=== PATIENT | female | born 1950 | race Caucasian/White ===

== ENCOUNTER 2018-04-28 06:44 | Observation (INO) | payer OTHER ==
[2018-04-28] MEDS ORDERED: CHLORHEXIDINE GLUC HIBICLENS 118 ML BTL TP ONE (07:00)
[2018-04-28] MEDS ORDERED: SURGIFLO MATRIX KIT WITH THROMBIN 8 ML TP ONE (07:00)
[2018-04-28] MEDS ORDERED: THROMBIN (BOVINE) 20,000 UNIT VIAL TP ONE (07:00)
[2018-04-28] MEDS ORDERED: GABAPENTIN 300 MG CAP PO ONE (07:01)
[2018-04-28] MEDS ORDERED: morphINE SR 15 MG TAB PO ONE (07:01)
[2018-04-28] MEDS ORDERED: ceFAZolin 2 GM/DEXTROSE 100 ML IV ONE (07:01)
[2018-04-28] MEDS ORDERED: BACITRACIN 50,000 UNITS/10 ML SYR IRR ONE (07:01)
[2018-04-28] MEDS ORDERED: LR 1,000 ML IV ONE (07:01)
[2018-04-28] MEDS ORDERED: ACETAMINOPHEN 500 MG TAB PO ONE (07:01)
--- NOTE | 2018-04-28 07:11 | PDHPUP ---
History & Physical Update H&P update statement: This history and physical update is based on an assessment of the patient which was completed after admission or registration (within 24 hours), but prior to the surgery/procedure. H&P update: H&P reviewed & patient examined, no change in patient's condition since H&P completed (Patient seen and all questions answered. Consents signed and sited marked.)
[2018-04-28 07:34] LABS: PLATELET COUNT 344 10^3/uL (150-400)
[2018-04-28] MEDS ORDERED: MIDAZOLAM 2 MG/2 ML VIAL IVP ONE (08:01)
--- NOTE | 2018-04-28 08:03 | PDANEPAE ---
ANE History of Present Illness C5-6 ACD and F ANE Past Medical History - Cardiovascular History Hx Hypertension: No Hx Arrhythmias: No Hx Chest Pain: No Hx Coronary Artery / Peripheral Vascular Disease: No Hx CHF / Valvular Disease: No Hx Palpitations: No - Pulmonary History Hx COPD: No Hx Asthma/Reactive Airway Disease: No Hx Recent Upper Respiratory Infection: No Hx Oxygen in Use at Home: No Hx Sleep Apnea: No Sleep Apnea Screening Result - Last Documented: Negative - Neurologic History Hx Cerebrovascular Accident: No Hx Seizures: No Hx Dementia: No - Endocrine History Hx Diabetes: No - Renal History Hx Renal Disorders: No - Liver History Hx Hepatic Disorders: No - Neurological & Psychiatric Hx Hx Neurological and Psychiatric Disorders: Yes Neurological / Psychiatric History Comment: ZINGERS DOWN ARMS - Cancer History Hx Cancer: No - Congenital Disorder History Hx Congenital Disorders: No - GI History Hx Gastrointestinal Disorders: Yes Gastrointestinal History Comment: DIVERTICULITIS - Other Health History Other Health History: BRUSITIS. BRUISES EASILY - Chronic Pain History Chronic Pain: No (RIGHT SHOULDER) - Surgical History Prior Surgeries: 2014 CATARCTS BILAT ANE Review of Systems Review of systems is: negative Review of Systems: - Exercise capacity METS (RN): 4 METS ANE Patient History - Allergies Allergies/Adverse Reactions: No Known Allergies Allergy (Verified 04/20/18 12:00) - Home Medications Home Medications: Cholestyramine (with Sugar) [Cholestyramine Packet] 4 gm PO DAILY 04/20/18 [ Last Taken 04/27/18 22:00] Herbals/Supplements -Info Only 1 ea PO DAILY 04/20/18 [Last Taken 1 Week Ago ~] - NPO status NPO Status: no food or drink >8 hours NPO Since - Liquids (Date): 04/27/18 NPO Since - Liquids (Time): 22:00 NPO Since - Solids (Date): 04/27/18 NPO Since - Solids (Time): 20:15 - Anes Hx Anes Hx: no prior problems - Smoking Hx Smoking Status: Former smoker Marijuana use: No - Alcohol Use Alcohol Use: Occasionally - Family Anes Hx Family Anes Hx: none Family Hx Anesthesia Complications: NONE ANE Labs/Vital Signs - Labs Result Diagrams: 04/28/18 07:30 - Vital Signs Blood Pressure: 141/79 Heart Rate: 82 Respiratory Rate: 16 O2 Sat (%): 95 Height: 162.56 cm Weight: 73.482 kg ANE Physical Exam - Airway Neck exam: decreased ROM Mallampati Score: Class 2 Mouth exam: normal dental/mouth exam, small mouth opening - Pulmonary Pulmonary: no respiratory distress, no rales or rhonchi - Cardiovascular Cardiovascular: regular rate and rhythym, no murmur, rub, or gallop - ASA Status ASA Status: II ANE Anesthesia Plan Anesthesia Plan: general endotracheal anesthesia
[2018-04-28] MEDS ORDERED: PROPOFOL 200 MG/20 ML VIAL ONE (08:07)
[2018-04-28] MEDS ORDERED: fentaNYL 250 MCG/5 ML INJ ONE (08:07)
[2018-04-28] MEDS ORDERED: PROPOFOL/EMULSION 500 MG/50 ML BOTTLE IV ONE (08:08)
[2018-04-28] MEDS ORDERED: ROCURONIUM 50 MG/5 ML VIAL ONE (08:08)
[2018-04-28] MEDS ORDERED: METOPROLOL TARTRATE 5 MG/5 ML INJ ONE (09:09)
[2018-04-28] MEDS ORDERED: HYDROCODONE/APAP 5/325 TAB PO PRN (09:35)
[2018-04-28] MEDS ORDERED: ONDANSETRON 4 MG/2 ML VIAL IVP PRN ×2 (09:35→10:01)
[2018-04-28] MEDS ORDERED: NALOXONE HCL 0.4 MG/ML INJ IVP PRN (09:35)
[2018-04-28] MEDS ORDERED: LABETALOL HCL 5 MG/ML 20 ML MDV IVP PRN (09:35)
[2018-04-28] MEDS ORDERED: DIAZEPAM 5 MG/ML 1 ML SYR IVP PRN (09:35)
[2018-04-28] MEDS ORDERED: oxyCODONE IR 5 MG TAB PO PRN (09:35)
[2018-04-28] MEDS ORDERED: DEXAMETHASONE 4 MG/ML VIAL ONE (09:37)
[2018-04-28] MEDS ORDERED: ONDANSETRON 4 MG/2 ML VIAL ONE (09:37)
[2018-04-28] MEDS ORDERED: MAGNESIUM HYDROXIDE 30 ML UDCUP PO PRN (10:01)
[2018-04-28] MEDS ORDERED: BISACODYL 10 MG SUPP PR PRN (10:01)
[2018-04-28] MEDS ORDERED: POLYETHYLENE GLYCOL 3350 17 GM PKT PO PRN (10:01)
[2018-04-28] MEDS ORDERED: LACTULOSE 20 GM/30 ML UDCUP PO PRN (10:01)
[2018-04-28] MEDS ORDERED: diphenhydrAMINE 25 MG CAP PO PRN (10:01)
[2018-04-28] MEDS ORDERED: ONDANSETRON DISINTEGRATING 4 MG TAB PO PRN (10:01)
[2018-04-28] MEDS ORDERED: fentaNYL 100 MCG/2 ML INJ ONE ×2 (10:08→10:52)
[2018-04-28] MEDS ORDERED: HYDROmorphONE/DILAUDID 2 MG/ML INJ ONE (10:08)
[2018-04-28] MEDS: fentaNYL 100 MCG/2 ML INJ IVP PRN ×2 (10:10→11:02)
--- NOTE | 2018-04-28 10:10 | POSTOPPROG ---
Post Op Note Date of Operation: 04/28/18 Surgeon: Manuel Le Piece Dyer: Maria Elena Villafana NP Anesthesiologist: Dr Castaneda Anesthesia: GET(General Endotracheal) Pre-op Diagnosis: Cervical radiculopathy Procedure: ACDF C5-6 Inf/Abcess present in the surg proc area at time of surgery?: No Depth: Deep Incisional (Fascial) EBL: Minimal Total fluids administered: see anesthesia Complications: none Date of Surgery: 04/28/18 Post Op Day: 0 Assessment/Plan: Assessment: 67 yr old F s/p ACDF C5-6 Plan: -Admit med surg for obs -Pain management -PT/OT/ST -Post op xrays ordered for later this afternoon -No collar needed -Please call neurosurgery with any questions/concerns Subjective: waking up in PACU Objective: Waking up in PACU No facial droop MAEx4 5/5 BUE BLE Incision/dressing CDI Appropriate Neuro Check Frequency Ordered: Yes
--- NOTE | 2018-04-28 10:14 | ASMTCMCOM ---
CM Note CM Note Notes: Patient is POD #0 ACDF C5/[address] Le. She is stable and recovering well. She lives with her in [place]. [facility] is already in touch w her for home PT services. Case Management available for any other d.c needs. Current CM Discharge plan: [facility] Date Signed: 04/28/2018 10:13 AM Electronically Signed By:Sue Sahu RN
[2018-04-28] MEDS: HYDROmorphONE/DILAUDID 2 MG/ML INJ IVP PRN ×3 (10:15→10:45)
[2018-04-28] MEDS ORDERED: NS 1,000 ML IV SCH (10:15)
[2018-04-28] MEDS ORDERED: METHOCARBAMOL 750 MG TAB ONE (10:37)
[2018-04-28] MEDS: METHOCARBAMOL 500 MG TAB PO PRN ×3 (10:54→20:48)
--- NOTE | 2018-04-28 10:58 | GOP ---
[f rep st] OPERATIVE REPORT DATE OF OPERATION: 04/28/2018 SURGEON: Manuel Le MD PACKAGE SEALER: Maria Elena Villafana NP. ANESTHESIA: General. PREOPERATIVE DIAGNOSIS: 1. C5-6 cervical spondylosis with upper extremity radiculopathy. 2. Treatment refractory to nonoperative intervention. POSTOPERATIVE DIAGNOSIS: 1. C5-6 cervical spondylosis with upper extremity radiculopathy. 2. Treatment refractory to nonoperative intervention. PROCEDURE PERFORMED: 1. Anterior arthrodesis with approach to C5 and C6. 2. C5/C6 diskectomy with bilateral foraminotomies, osteophytectomies, and interbody fusion using a 6 mm titanium coated polyetheretherketone cage filled with morselized autograft. 3. Anterior cervical fusion C5-C6 with a 17 mm Medtronic Zevo plate. 4. Use of intraoperative fluoroscopy, less than 1 hour physician time. 5. Use of neuromonitoring. 6. Use of operative microscope. FINDINGS: per imaging SPECIMENS: None. ESTIMATED BLOOD LOSS: 20 mL. COMPLICATIONS: None. INDICATIONS: The patient is a very pleasant 67-year-old woman who presented to the office with cervicalgia and radiculopathy. Imaging demonstrated cervical spondylosis at the C5-C6 level. After discussion of the risks, benefits, and alternatives, and after failing nonoperative intervention, we decided to proceed forth with surgery as described above. DESCRIPTION OF PROCEDURE: The patient was brought to the operating theater and underwent general endotracheal anesthesia without complications. She had Venodynes, GINA hose, and the appropriate lines placed by Anesthesia. Her head was maintained supine on the operating table in slight extension. Using lateral fluoroscopy and spinal needle, we picked our entry point to the C5 through C6 levels. This was marked as a transverse incision on the right side of her neck. This area was prepped and draped in the usual sterile surgical fashion. A time-out was completed per protocol, and the patient received antibiotics within 1 hour of incision. The incision was taken down with the scalpel blade. Used the monopolar, the incision was taken down the subcutaneous tissues to the level of the platysma. The platysma was over-mined in cranial and caudal directions. A Weitlaner was placed to maintain our exposure. We opened the fibers of the platysma cranially and caudally. Using both blunt and sharp dissection, we traveled in a plane medial to the carotid sheath and lateral to the esophagus and trachea until we reached the prevertebral fascia. We placed a bayonetted needle into the disk space of C5-C6 and confirmed our level using lateral fluoroscopy. We elevated the longus coli muscle from the anterior vertebral bodies of C5 and C6 , and a deep retractor was placed to maintain our exposure. The microscope was brought into the field to assist with microscopic dissection and to maintain illumination and magnification. We placed a [place] pin into the vertebral body of C5 and C6 and placed C5-C6 into mild distraction. We completed a C5-C6 diskectomy with bilateral foraminotomies and osteophytectomies. We prepared the cartilaginous endplates and measured the interbody space. We then placed a 6 mm titanium coated PEEK cage filled with morselized autograft into the C5-6 disk space. We removed the [place] pins and drilled down the anterior osteophytes and secured a 17 mm Medtronic Zevo plate onto the vertebral bodies of C5 and C6. AP and lateral x-rays demonstrated good placement of the hardware. The wound was irrigated copiously with bacitracin irrigation. We then closed the wound in multiple layers including Vicryl sutures for the deep layers and Dermabond for the skin. The patient's wounds were dressed sterilely. She was awakened, extubated and taken to recovery room in stable condition. There were no complications and no noted changes on neuromonitoring throughout the procedure. /[id number]/MODL MTDD
[2018-04-28] MEDS: ACETAMINOPHEN 500 MG TAB PO SCH ×2 (12:40→23:13)
[2018-04-28] MEDS: oxyCODONE IR 5 MG TAB PO PRN ×2 (12:41→20:49)
[2018-04-28] MEDS: ceFAZolin 2 GM/DEXTROSE 100 ML IV SCH ×2 (16:14→23:12)
--- NOTE | 2018-04-28 20:42 | POSTANESTH ---
Post Anesthetic Evaluation Cardiovascular Status: Normal, Stable Respiratory Status: Normal, Stable Level of Consciousness/Mental Status: Can Participate in Eval Pain Control: Adequate, Prn Tx Ordered Nausea/Vomiting Control: Adequate, Prn Tx Ordered Complications Possibly Related to Anesthesia: None Noted
[2018-04-28] MEDS: FAMOTIDINE 20 MG TAB PO SCH (20:48)
[2018-04-28] MEDS: SENNOSIDES/DOCUSATE SODIUM TAB PO SCH ×2 (20:48→20:53)
[2018-04-29] MEDS: oxyCODONE IR 5 MG TAB PO PRN ×2 (05:23→11:57)
[2018-04-29] MEDS: METHOCARBAMOL 500 MG TAB PO PRN ×2 (05:24→11:57)
[2018-04-29] MEDS: ACETAMINOPHEN 500 MG TAB PO SCH ×2 (05:24→12:26)
[2018-04-29 05:46] LABS: PLATELET COUNT 314 10^3/uL (150-400)
--- NOTE | 2018-04-29 07:20 | NEUSURGPN ---
Date of Surgery: 04/28/18 Post Op Day: 1 Assessment/Plan: Assessment: 67 yr old female that is s/p ACDF C5-6 POD #1 Plan: -s/p ACDF C5/6: doing well this am -no collar per Dr Le -eating/drinking and voiding fine -continue with med surg for obs -Pain management-CPM -PT/OT/ST pending this am -Post op xrays pending this am -warning signs given -Please call neurosurgery with any questions/concerns -plan for dc later this am if xrays ok and Pt clears therapies -d/w Dr Le Subjective: No new complaints. No segura/cp/sob/abd or gu complaints. No f/c/n/v/d. Objective: AAO x 3, PERRLA/EOMI No facial droop CN 2-12 grossly intact MAEx4 5/5 BUE BLE Incision/dressing CDI Neck soft and supple Neuro Check Frequency: per routine Urinary Catheter in Place: No - Physician Discussed Patient with : [facility] Physical Exam - Vitals, I&O, Labs I and O 04/28/18 04/29/18 04/30/18 05:59 05:59 05:59 Intake Total 3110 Output Total 2220 Balance 890 Weight 73.482 kg Intake: Oral (ml) 1300 IV Intake (ml) 800 IV Infused (ml) 1010 Ns 1,000 ml @ 75 mls/hr 900 IV CONT MARIA EUGENIA Rx#: [id number] ceFAZolin 2 GM/DEXTROSE 110 100 ml @ 200 mls/hr IV Q8H MARIA EUGENIA Rx#:[id number] Output: Urine (ml) 2200 Incontinence 900 Toilet 1300 Estimated Blood Loss (ml) 20 Other: Intake Quantity Yes Sufficient Number of Voids Incontinence 1 Toilet 1 Vital Signs Temp Pulse Resp BP Pulse Ox 36.9 C 62 16 135/60 H 92 04/29/18 03:31 04/29/18 03:31 04/29/18 03:31 04/29/18 03:31 04/29/18 03:31 Laboratory Results 04/29/18 05:08 04/29/18 05:08 ICD10 Worksheet Patient Problems: Problems Problem Status Onset Arthrodesis status Acute Cervical spinal stenosis Acute - ICD10 Problem Qualifiers (1) Cervical spinal stenosis (2) Arthrodesis status
[2018-04-29] MEDS: SENNOSIDES/DOCUSATE SODIUM TAB PO SCH (08:51)
[2018-04-29] MEDS: FAMOTIDINE 20 MG TAB PO SCH (09:11)
--- NOTE | 2018-04-29 10:20 | ASMTCMCOM ---
CM Note CM Note Notes: Pt medically stable for d/c with [facility], referral sent and [facility] has protocol with MD so no orders needed. Pt address verified as [facility] [facility] [address], [facility] updated. Date Signed: 04/29/2018 10:19 AM Electronically Signed By:SILVIA Traore
[2018-04-29 12:00] VITALS: BP 108/62
--- NOTE | 2018-04-29 14:38 | ASDISCHSUM ---
Discharge Information Plan Status:Home with Home Health Medically Cleared to Leave: Discharge Date:04/29/2018 12:46 PM CM D/C Disposition: ADT D/C Disposition:Home, Routine, Self-Care Projected Discharge Date:04/29/2018 11:00 AM Transportation at D/C: Discharge Delay Reason: Follow-Up Date:04/29/2018 11:00 AM Discharge Slot: Final Diagnosis: Placement Information Referral Type:*Home Health Care Services Referral ID:[id number] Provider Name:[facility] ([facility]) Address 1:[address] [address] Address 2: City:[place] Selection Factors: State:[place] Patient Contact Information Contact Name:MITCH Relationship: Address:[address] [address] Work Phone: City:[facility] Phone: State/Zip Code:[place] [address] Email: Financial Information Financial Class:Medicare Primary Plan Desc:MEDICARE OUTPATIENT Primary Plan Number:[id number] Secondary Plan Desc:MANDI Secondary Plan Number:[id number] Assessment Information [facility] CM Progress Note CM Note CM Note Notes: Patient is POD #0 ACDF C5/[address] Le. She is stable and recovering well. She lives with her in [place]. [employer] [facility] is already in touch w her for home PT services. Case Management available for any other d.c needs. Current CM Discharge plan: [facility] Date Signed: 04/28/2018 10:13 AM Electronically Signed By:Sue Sahu RN [facility] CM Progress Note CM Note CM Note Notes: Pt medically stable for d/c with [facility], referral sent and [facility] has protocol with so no orders needed. Pt address verified as [address] [address], [facility] updated. Date Signed: 04/29/2018 10:19 AM Electronically Signed By:SILVIA Traore Intervention Information
[2018-05-01] MEDS ORDERED: ENOXAPARIN 40 MG/0.4 ML SYR SC SCH (09:00)
== END 2018-04-29 12:46 | disposition home health service (06) ==
LOC: F3N 06:44
PROVIDERS: ADMIT Neurological Surgery; ATTEND Neurological Surgery
PROC: 0RB30ZZ Excision of Cervical Vertebral Disc, Open Approach (ICD-10-PCS; principal; 2018-04-28 08:15)
PROC: 4A1004G Monitoring of Central Nervous Electrical Activity, Intraoperative, Open Approach (ICD-10-PCS; principal; 2018-04-28 08:15)
PROC: BR10YZZ Fluoroscopy of Cervical Spine using Other Contrast (ICD-10-PCS; principal; 2018-04-28 08:15)
PROC: 0RG10A0 Fusion of Cervical Vertebral Joint with Interbody Fusion Device, Anterior Approach, Anterior Column, Open Approach (ICD-10-PCS; principal; 2018-04-28 08:15)
PROC: 00NW0ZZ Release Cervical Spinal Cord, Open Approach (ICD-10-PCS; principal; 2018-04-28 08:15)
PROC: 8E0WXBF Computer Assisted Procedure of Trunk Region, With Fluoroscopy (ICD-10-PCS; principal; 2018-04-28 08:15)
DX: M47.22 Other spondylosis with radiculopathy, cervical region (principal); M50.222 Other cervical disc displacement at C5-C6 level; Z87.891 Personal history of nicotine dependence
CPT/HCPCS: 22551; 72040; 92610; 97161; 97165; C1713; J0690; J1100; J1170; J2250; J2405; J2704; J3010; 92523-GN; J2270